=== PATIENT | male | born 1955 | race Caucasian/White ===

== ENCOUNTER 2017-03-11 17:44 | Emergency (ER) | payer OTHER ==
[~2017-03-11] VITALS: Ht 172.7 cm; Wt 80.0 kg
[2017-03-11 17:46] VITALS: BP 163/90; PULSE 116; RESP 16; TEMP 97.9; O2SAT 96
--- NOTE | 2017-03-11 17:55 | PD ---
HPI Chief Complaint: Dizziness Time Seen by Provider: 17:55 Travel History International Travel<30 days: No Contact w/Intl Traveler<30days: No Traveled to known affect area: No Allergies-Medications (Allergen,Severity, Reaction): Coded Allergies: No Known Allergies (Verified Adverse Reaction, Unknown, 04/26/05) Data Data Last Documented VS Vital Signs Date Time Temp Pulse Resp B/P Pulse Ox O2 Delivery O2 Flow Rate FiO2 03/11/17 17:46 97.9 116 16 163/90 96 Dominique Galvan Mar 11, 2017 17:55
[2017-03-11] MEDS ORDERED: SODIUM CHLOR 0.9% 1000 ML INJ 1,000 ML IV SCH (18:00)
--- NOTE | 2017-03-11 18:08 | PD ---
HPI Chief Complaint: Dizziness Time Seen by Provider: 17:53 Travel History International Travel<30 days: No Contact w/Intl Traveler<30days: No Traveled to known affect area: No History of Present Illness HPI 62-year-old male complains of dizziness, nausea vomiting. Patient states that he has intermittent dizziness for the past 3 months. Patient states that the dizziness is worse for the past 24 hours. Patient described the dizziness as things spinning around him. Patient states that the dizziness is worse with head movement. Patient states that he has intermittent nausea vomiting with the dizziness. Patient denies any headache. Patient denies any visual change. Patient denies any neck pain. Patient denies any chest pain or shortness of breath. Patient denies abdominal pain. Patient denies any focal weakness or numbness of extremity. Patient denies any fever chills. Patient denies any recent head injury. PFSH Social History Tobacco Use: No Allergies-Medications (Allergen,Severity, Reaction): Coded Allergies: No Known Allergies (Verified , 03/11/17) Reported Meds & Prescriptions Reported Meds & Active Scripts Active Zofran Odt (Ondansetron Odt) 4 Mg Tab 4 Mg SL Q6HR PRN Meclizine (Meclizine HCl) 25 Mg Tab 25 Mg PO TID PRN Augmentin (Amoxicillin-Clavulanate) 875-125 Mg Tab 1 Tab PO BID Reported Multi Adult Gummies (Multiple Vitamins W/ Minerals) 1 Chw Chw 1 Chew CHEW DAILY Advil Liqui-Gels (Ibuprofen) 200 Mg Capsule 800 Mg PO TID PRN Review of Systems General / Constitutional: No: Fever Eyes: No: Visual changes HENT: Positive: Lightheadedness, No: Headaches Cardiovascular: No: Chest Pain or Discomfort Respiratory: No: Shortness of Breath Gastrointestinal: Positive: Nausea, Vomiting, No: Abdominal Pain Genitourinary: No: Dysuria Musculoskeletal: No: Pain Skin: No Rash Neurologic: No: Weakness Psychiatric: No: Depression Endocrine: No: Polydipsia Hematologic/Lymphatic: No: Easy Bruising Physical Exam Narrative GENERAL: Well-nourished, well-developed patient. SKIN: Focused skin assessment warm/dry. HEAD: Normocephalic. EYES: No scleral icterus. No injection or drainage. Pupils 3 mm equal reactive. Patient has horizontal nystagmus. NECK: Supple, trachea midline. No JVD or lymphadenopathy. CARDIOVASCULAR: Regular rate and rhythm without murmurs, gallops, or rubs. RESPIRATORY: Breath sounds equal bilaterally. No accessory muscle use. GASTROINTESTINAL: Abdomen soft, non-tender, nondistended. MUSCULOSKELETAL: No cyanosis, or edema. BACK: Nontender without obvious deformity. No CVA tenderness. Neurologic exam: Patient's awake and alert oriented 3. No obvious focal neurological deficit. Deep tendon Reflexes +2 and equal. Negative Babinski. Data Data Last Documented VS Vital Signs Date Time Temp Pulse Resp B/P Pulse Ox O2 Delivery O2 Flow Rate FiO2 03/11/17 18:33 16 98 Room Air 03/11/17 17:46 97.9 116 163/90 Orders Electrocardiogram (03/11/17 18:00) Complete Blood Count With Diff (03/11/17 18:00) Comprehensive Metabolic Panel (03/11/17 18:00) Creatine Kinase (Cpk) (03/11/17 18:00) Troponin I (03/11/17 18:00) Prothrombin Time / Inr (Pt) (03/11/17 18:00) Act Partial Throm Time (Ptt) (03/11/17 18:00) Westergren Sedimentation Rate (03/11/17 18:00) Iv Access Insert/Monitor (03/11/17 18:00) Ecg Monitoring (03/11/17 18:00) Oximetry (03/11/17 18:00) Mri Brain W/O Contrast (03/11/17 18:00) Mra Brain W/O Contrast (Cow) (03/11/17 18:00) Mra Carotids W Contrast (03/11/17 18:00) Sodium Chlor 0.9% 1000 Ml Inj (Ns 1000 M (03/11/17 18:00) Ondansetron Inj (Zofran Inj) (03/11/17 18:15) Lorazepam Inj (Ativan Inj) (03/11/17 18:15) CKMB (03/11/17 18:25) CKMB% (03/11/17 18:25) Gadodiamide Pf Inj (Omniscan Pf Inj) (03/11/17 21:12) Amoxicil-Clavulanate (Augmentin) (03/11/17 21:45) Meclizine (Antivert) (03/11/17 21:45) Labs Laboratory Tests Test 03/11/17 18:25 White Blood Count 8.9 TH/MM3 Red Blood Count 5.53 MIL/MM3 Hemoglobin 18.0 GM/DL Hematocrit 53.0 % Mean Corpuscular Volume 95.8 FL Mean Corpuscular Hemoglobin 32.6 PG Mean Corpuscular Hemoglobin 34.0 % Concent Red Cell Distribution Width 13.0 % Platelet Count 220 TH/MM3 Mean Platelet Volume 8.6 FL Neutrophils (%) (Auto) 70.2 % Lymphocytes (%) (Auto) 24.2 % Monocytes (%) (Auto) 4.7 % Eosinophils (%) (Auto) 0.6 % Basophils (%) (Auto) 0.3 % Neutrophils # (Auto) 6.2 TH/MM3 Lymphocytes # (Auto) 2.2 TH/MM3 Monocytes # (Auto) 0.4 TH/MM3 Eosinophils # (Auto) 0.1 TH/MM3 Basophils # (Auto) 0.0 TH/MM3 CBC Comment DIFF FINAL Differential Comment Erythrocyte Sedimentation Rate 1 mm/hr Prothrombin Time 10.7 SEC Prothromb Time International 1.0 RATIO Ratio Activated Partial 26.6 SEC Thromboplast Time Sodium Level 137 MEQ/L Potassium Level 3.8 MEQ/L Chloride Level 99 MEQ/L Carbon Dioxide Level 28.0 MEQ/L Anion Gap 10 MEQ/L Blood Urea Nitrogen 22 MG/DL Creatinine 0.87 MG/DL Estimat Glomerular Filtration 89 ML/MIN Rate Random Glucose 107 MG/DL Calcium Level 9.2 MG/DL Total Bilirubin 0.6 MG/DL Aspartate Amino Transf 31 U/L (AST/SGOT) Alanine Aminotransferase 50 U/L (ALT/SGPT) Alkaline Phosphatase 55 U/L Total Creatine Kinase 444 U/L Creatine Kinase MB 2.3 NG/ML Creatine Kinase MB % 0.5 % Troponin I 0.03 NG/ML Total Protein 7.9 GM/DL Albumin 3.9 GM/DL MDM Medical Decision Making Medical Screen Exam Complete: Yes Emergency Medical Condition: Yes Interpretation(s) Last Impressions Neck Magnetic Resonance Angiography 03/11/17 1800 Signed Impressions: Service Date/Time: Saturday, March 11, 2017 20:17 - CONCLUSION: Plaque in the proximal right internal carotid artery resulting in mild stenosis. No evidence of hemodynamically significant carotid stenosis. Aashish Ospina MD Head Magnetic Resonance Angiography 03/11/17 1800 Signed Impressions: Service Date/Time: Saturday, March 11, 2017 20:17 - CONCLUSION: Brain MRA within normal limits. Aashish Ospina MD Brain MRI 03/11/17 1800 Signed Impressions: Service Date/Time: Saturday, March 11, 2017 20:17 - CONCLUSION: 1. Scattered white matter hyperintensities likely represent chronic small vessel ischemic change. 2. Air-fluid levels in the maxillary sinuses suggesting acute sinusitis. 3. No acute intracranial findings. Aashish Ospina MD 9:39 PM. CBC within normal limit. CMP within normal limit. BUN 22. Total CK 444. Normal MB fraction. Differential Diagnosis Differential diagnosis including acute vertigo, electrolyte imbalance, dehydration, TIA, CVA. Narrative Course 62-year-old male with dizziness and nausea vomiting. Diagnosis Primary Impression: Acute onset of severe vertigo Additional Impression: Sinusitis Qualified Code: J01.00 - Acute maxillary sinusitis, recurrence not specified Patient Instructions: General Instructions Additional Instructions: Meclizine as needed. Zofran as needed. Follow-up with ENT and neurologist. Return if persistent problem or worse. Med/Other Pt SpecificInfo: Prescription(s) given Scripts Ondansetron Odt (Zofran Odt)4 Mg Tab4 Mg SL Q6HR PRN (Nausea/Vomiting) #10 TAB Prov:Ryan Archer MD 03/11/17 Meclizine 25 Mg Tab25 Mg PO TID PRN (VERTIGO) #30 TAB Prov:Ryan Archer MD 03/11/17 Amoxicillin-Clavulanate (Augmentin)875-125 Mg Tab1 Tab PO BID #20 TAB Prov:Ryan Archer MD 03/11/17 Disposition: 01 DISCHARGE HOME Condition: Stable Ryan Archer MD Mar 11, 2017 18:08
[2017-03-11] MEDS ORDERED: LORazepam 2 MG/ML VIAL IV PUSH ONE (18:15)
[2017-03-11] MEDS ORDERED: ONDANSETRON HCL 4 MG/2 ML VIAL IV PUSH ONE (18:15)
[2017-03-11 18:31] VITALS: RESP 16; O2SAT 98
[2017-03-11 19:02] LABS: AUTOMATED NEUTROPHIL # 6.2 TH/MM3 (1.8-7.7); BASOPHIL % 0.3 % (0.0-2.0); EOSINOPHIL # 0.1 TH/MM3 (0-0.4); EOSINOPHIL % 0.6 % (0.0-4.0); HEMO FLAGS DIFF FINAL; LYMPH % 24.2 % (9.0-44.0); LYMPHOCYTE # 2.2 TH/MM3 (1.0-4.8); MEAN CELL VOLUME 95.8 FL (80.0-100.0); MEAN CORPUSCULAR HEMOGLOBIN 32.6 PG (27.0-34.0); MONO % 4.7 % (0.0-8.0); NEUT % 70.2 % (16.0-70.0); PLATELET COUNT 220 TH/MM3 (150-450); RED BLOOD COUNT 5.53 MIL/MM3 (4.50-5.90); WHITE BLOOD COUNT 8.9 TH/MM3 (4.0-11.0)
[2017-03-11] MEDS ORDERED: PEDI1TAB7 CHEW (19:11)
[2017-03-11] MEDS ORDERED: IBUP200C17 PO (19:11)
[2017-03-11 19:12] LABS: APTT (PATIENT) 26.6 SEC (24.3-30.1); PROTHROMBIN TIME - PATIENT 10.7 SEC (9.8-11.6)
[2017-03-11] MEDS ORDERED: MULT1CHW33 CHEW (19:12)
[2017-03-11 19:28] LABS: ANION GAP 10 MEQ/L (5-15); BLOOD UREA NITROGEN 22 MG/DL (7-18); CHLORIDE 99 MEQ/L (98-107); GLOMERULAR FILTRATION RATE 89 ML/MIN (>89); POTASSIUM 3.8 MEQ/L (3.5-5.1); SODIUM (NA) 137 MEQ/L (136-145)
[2017-03-11 19:29] LABS: ALT (GPT) 50 U/L (12-78)
[2017-03-11 19:33] LABS: ALKALINE PHOSPHATASE 55 U/L (45-117); AST (GOT) 31 U/L (15-37); CREATINE KINASE 444 U/L (39-308); TOTAL BILIRUBIN ADULT 0.6 MG/DL (0.2-1.0)
[2017-03-11 19:46] LABS: CKMB 2.3 NG/ML (0.5-3.6)
[2017-03-11] MEDS ORDERED: GADODIAMIDE PF 287 MG/ML 20 ML VIAL (for RAD MRI) IV ONE (21:12)
--- NOTE | 2017-03-11 21:21 | RADRPT ---
EXAM DATE/TIME: 03/11/2017 20:17 [facility] COMPARISON: No previous studies available for comparison. INDICATIONS : Vertigo. Nausea. MEDICAL HISTORY : None. SURGICAL HISTORY : Appendectomy. Facial surgery. ENCOUNTER: Initial ACUITY: 1 day PAIN SCORE: 0/10 LOCATION: cranial TECHNIQUE: Multiplanar, multisequence MRI of the brain was performed without contrast. FINDINGS: CEREBRUM: The ventricles are normal for age. No evidence of midline shift, mass lesion, hemorrhage or acute in farction. No extraaxial fluid collections are seen. The pituitary gland and suprasellar cistern are normal in configuration. WHITE MATTER: Scattered white matter hyperintensities likely represent chronic small vessel ischemic change. POSTERIOR FOSSA: The cerebellum and brainstem are intact. The 4th ventricle is midline. The cerebellopontine angle is unremarkable. The cerebellar tonsils are normal in position. DIFFUSION IMAGING: No focal areas of restricted diffusion are seen. No evidence of acute infarction. EXTRACRANIAL: Moderate severity bilateral maxillary sinus the coastal thickening and small air-fluid levels. CONCLUSION: 1. Scattered white matter hyperintensities likely represent chronic small vessel ischemic change. 2. Air-fluid levels in the maxillary sinuses suggesting acute sinusitis. 3. No acute intracranial findings. Aashish Ospina MD on March 11, 2017 at 21:16 Board Certified Radiologist. This report was verified electronically.
--- NOTE | 2017-03-11 21:23 | RADRPT ---
EXAM DATE/TIME: 03/11/2017 20:17 [facility] COMPARISON: No previous studies available for comparison. INDICATIONS : Vertigo. Nausea. MEDICAL HISTORY : None. SURGICAL HISTORY : Appendectomy. Facial surgery ENCOUNTER: Initial ACUITY: 1 day PAIN SCORE: 0/10 LOCATION: cranial Please note a normal MRA of the brain does not entirely exclude the possibility of a small aneurysm, nor the possibility of distal intracranial vessel disease. TECHNIQUE: 3D time of flight MRA was performed. Source images, multiplanar STS MIP, and 3D volume MIP reconstru ctions were reviewed. FINDINGS: There is excellent visualization of the major intracranial arteries out to the second-order branch ve ssels. There is no evidence for aneurysm, vessel truncation or stenosis, and no evidence for vascula r malformation. CONCLUSION: Brain MRA within normal limits. Aashish Ospina MD on March 11, 2017 at 21:19 Board Certified Radiologist. This report was verified electronically.
--- NOTE | 2017-03-11 21:27 | RADRPT ---
EXAM DATE/TIME: 03/11/2017 20:17 [facility] COMPARISON: No previous studies available for comparison. INDICATIONS : Vertigo. Nausea. CONTRAST: 20 cc Omniscan (gadodiamide) IV MEDICAL HISTORY : None. SURGICAL HISTORY : Appendectomy. Facial surgery. ENCOUNTER: Initial ACUITY: 1 day PAIN SCORE: 0/10 LOCATION: Percent stenosis is calculated using the diameter of the stenotic region over the diameter of the nor mal distal internal carotid artery. TECHNIQUE: Bolus infused MRA of the extracranial circulation was performed using a neurovascular coil. Post pro cessing was performed including rotating subvolume maximum intensity projections of each carotid channing ry, rotating full volume maximum intensity projections of both carotid arteries, sagittal and coronal sliding thin slab reformations of each carotid artery, and left oblique sliding thin slab reformatio n through the aortic arch to include the origin of the arch branch vessels. FINDINGS: AORTIC ARCH: There is a three vessel origin of the great vessels from the aorta. No evidence of ostial narrowing. RIGHT CAROTID: The common carotid artery is intact. Atherosclerotic plaque is identified at the proximal right inte rnal carotid artery/carotid bulb. This results in mild stenosis of less than 30%. The external caroti d artery is intact. LEFT CAROTID: The common carotid artery is intact. The carotid bulb has a normal configuration without ulceration or narrowing. The internal carotid artery lumen is smooth without stenosis. The external carotid ar larisa is intact. VERTEBRALS: The vertebral arteries have a symmetric diameter. No stenotic lesions are seen. CONCLUSION: Plaque in the proximal right internal carotid artery resulting in mild stenosis. No e vidence of hemodynamically significant carotid stenosis. Aashish Ospina MD on March 11, 2017 at 21:21 Board Certified Radiologist. This report was verified electronically.
[2017-03-11] MEDS ORDERED: AMOXICILLIN/CLAVULANATE K 875 MG TAB PO ONE (21:45)
[2017-03-11] MEDS ORDERED: MECLIZINE HCL 25 MG TAB PO ONE (21:45)
[2017-03-11] MEDS ORDERED: MECL-62 PO (21:47)
[2017-03-11] MEDS ORDERED: AUGM875T3 PO (21:47)
[2017-03-11] MEDS ORDERED: ZOFR4TAB3 SL (21:47)
--- NOTE | 2017-03-12 13:24 | EKG ---
Date Performed: 03/11/2017 Time Performed: 18:40:56 PTAGE: 62 years EKG: SINUS TACHYCARDIA ARM LEADS REVERSED ABNORMAL RHYTHM ECG PREVIOUS TRACING : 04/23/2005 09.15 Compared to prior tracing no significant change DOCTOR: Dmitry Adam Interpretating Date/Time 03/12/2017 13:24:26
== END 2017-03-11 23:07 | disposition home or self-care (01) ==
LOC: NEPD 17:44
DX: R42 Dizziness and giddiness (principal); J01.00 Acute maxillary sinusitis, unspecified; R94.31 Abnormal electrocardiogram [ECG] [EKG]; I65.21 Occlusion and stenosis of right carotid artery
CPT/HCPCS: 70544; 70548; 70551; 80053; 82550; 82552; 84484; 85025; 85610; 85652; 85730; 93005; 96361; 96374; 96375; 99285; A9579; J2060; J2405; J7030

== ENCOUNTER 2017-05-16 07:33 | Inpatient (IN) | payer OTHER ==
[2017-05-16] VITALS (16 sets, daily range): BP systolic 117–156; BP diastolic 71–89; PULSE 80–100; RESP 18–26; TEMP 98–98.9; O2SAT 92–95
[~2017-05-16 07:33] MED LIST: AUGM875T3 PO; IBUP200C17 PO; MECL-62 PO; MULT1CHW33 CHEW; ZOFR4TAB3 SL
[2017-05-16] MEDS ORDERED: HEPARIN SODIUM - IV 10,000 UNITS/10 ML VIAL ONE ×2 (07:36→07:44)
[2017-05-16] MEDS ORDERED: SODIUM CHLOR 0.9% 1000 ML INJ 1,000 ML IV ONE (07:36)
[2017-05-16] MEDS ORDERED: HEPARIN SODIUM - IV 10,000 UNITS/10 ML VIAL IV STA (07:36)
[2017-05-16] MEDS ORDERED: MORPHINE SULFATE 8 MG/ML INJ ONE (07:37)
[2017-05-16] MEDS ORDERED: NITROGLYCERIN INJ 5 ML ONE (07:44)
[2017-05-16] MEDS ORDERED: HEPARIN-NS/PF INJ 1,000 ML ONE (07:44)
[2017-05-16] MEDS ORDERED: SODIUM CHLORIDE 0.9% FLUSH 10 ML FLUSH IVF PRN (07:45)
[2017-05-16] MEDS ORDERED: MORPHINE SULFATE 4 MG/ML INJ IV PUSH ONE (07:45)
[2017-05-16] MEDS ORDERED: MIDAZOLAM HCL 2 MG/2 ML VIAL ONE ×2 (07:47→08:08)
--- NOTE | 2017-05-16 07:53 | RADRPT ---
EXAM DATE/TIME: 05/16/2017 07:39 [facility] COMPARISON: No previous studies available for comparison. INDICATIONS : Stemi alert. Chest pain. MEDICAL HISTORY : None. SURGICAL HISTORY : Appendectomy. Facial surgery ENCOUNTER: Initial ACUITY: 1 day PAIN SCORE: 5/10 LOCATION: Bilateral chest FINDINGS: A single view of the chest demonstrates the lungs to be symmetrically aerated without evidence of mas s, infiltrate or effusion. The cardiomediastinal contours are unremarkable. Osseous structures are intact. CONCLUSION: 1. No acute cardiopulmonary disease. Dash Suazo MD on May 16, 2017 at 7:51 Board Certified Radiologist. This report was verified electronically.
[2017-05-16 07:59] LABS: AUTOMATED NEUTROPHIL # 4.2 TH/MM3 (1.8-7.7); BASOPHIL % 0.5 % (0.0-2.0); EOSINOPHIL # 0.2 TH/MM3 (0-0.4); EOSINOPHIL % 2.1 % (0.0-4.0); HEMATOCRIT 47.2 % (39.0-51.0); HEMO FLAGS DIFF FINAL; LYMPH % 35.4 % (9.0-44.0); LYMPHOCYTE # 2.7 TH/MM3 (1.0-4.8); MEAN CELL VOLUME 96.1 FL (80.0-100.0); MEAN CORPUSCULAR HEMOGLOBIN 32.9 PG (27.0-34.0); MEAN CORPUSCULAR HGB CONC 34.2 % (32.0-36.0); MONO % 6.7 % (0.0-8.0); NEUT % 55.3 % (16.0-70.0); PLATELET COUNT 231 TH/MM3 (150-450); RED BLOOD COUNT 4.91 MIL/MM3 (4.50-5.90); RED CELL DISTRIBUTION WIDTH 13.3 % (11.6-17.2); WHITE BLOOD COUNT 7.5 TH/MM3 (4.0-11.0)
[2017-05-16] MEDS ORDERED: BIVALIRUDIN 250 MG VIAL ONE (08:00)
[2017-05-16] MEDS ORDERED: STERILE WATER FOR INJECTION 10 ML VIAL ONE (08:00)
[2017-05-16 08:04] LABS: I-STAT POTASSIUM 3.7 MMOL/L (3.5-4.9); I-STAT SODIUM 140 MMOL/L (138-146)
[2017-05-16 08:14] LABS: MAGNESIUM 2.5 MG/DL (1.5-2.5)
[2017-05-16 08:15] LABS: APTT (PATIENT) 24.3 SEC (24.3-30.1); PROTHROMBIN TIME - PATIENT 10.9 SEC (9.8-11.6)
[2017-05-16 08:16] LABS: CREATINE KINASE 261 U/L (39-308)
[2017-05-16 08:28] LABS: CKMB 4.5 NG/ML (0.5-3.6)
[2017-05-16] MEDS ORDERED: CLOPIDOGREL 300 MG TAB ONE (08:45)
[2017-05-16] MEDS ORDERED: SODIUM CHLOR 0.9% 1000 ML INJ 1,000 ML IV SCH (08:51)
[2017-05-16] MEDS ORDERED: BIVALIRUDIN INJ 250 MG in SODIUM CHLORIDE 0.9% INJ 50 ML IV SCH (08:51)
[2017-05-16] MEDS ORDERED: oxyCODONE/ACETAMINOPHEN 10 MG/325 MG TAB PO PRN (09:00)
[2017-05-16] MEDS ORDERED: oxyCODONE/ACETAMINOPHEN 5 MG/325 MG TAB PO PRN (09:00)
[2017-05-16] MEDS ORDERED: BACITRACIN OINT 0.9 GM PKT TOP ONE (09:00)
[2017-05-16] MEDS ORDERED: MORPHINE SULFATE 4 MG/ML INJ IV PUSH PRN (09:00)
[2017-05-16] MEDS ORDERED: ACETAMINOPHEN 325 MG TAB PO PRN (09:00)
[2017-05-16] MEDS ORDERED: TEMAZEPAM 15 MG CAP PO PRN (09:00)
[2017-05-16] MEDS ORDERED: LIDOCAINE 2% JELLY 30 ML TUBE TOP PRN (09:00)
[2017-05-16] MEDS ORDERED: CLOPIDOGREL 300 MG TAB PO ONE (09:00)
[2017-05-16] MEDS ORDERED: ONDANSETRON HCL 4 MG/2 ML VIAL IVP PRN (09:00)
[2017-05-16] MEDS ORDERED: MISC INFORMATION XX ONE (09:00)
--- NOTE | 2017-05-16 09:01 | PD ---
HPI Chief Complaint: STEMI Alert Time Seen by Provider: 07:36 Travel History International Travel<30 days: No Contact w/Intl Traveler<30days: No Traveled to known affect area: No History of Present Illness HPI 62-year-old male was brought in emergently as a STEMI alert. Patient is otherwise a healthy person was running when he started getting chest pain. This was 30 minutes prior to arrival. When EMS arrived and did a 12-lead EKG inferior STEMI was observed. Patient was given 2 baby aspirin and 3 sublingual nitroglycerin [id number]. Patient has a flange turner Dr. Soriano who did a stress test 2 years ago which was negative. No significant past medical history. Patient is not a smoker. Patient appears to be in significant distress. Complains of left-sided chest heaviness. A STEMI alert was called from ER. I discussed the case with patient's flange turner Dr. Soriano who asked me to call Dr. Bennett since he was out of town. Dr. Bennett would be coming in to perform the catheter. Patient has been notified about this. [facility] Past Medical History Narrative Medical List of his past medical, surgical, social and family history is reviewed from the nursing note. Social History Tobacco Use: No Allergies-Medications (Allergen,Severity, Reaction): Coded Allergies: No Known Allergies (Verified , 03/11/17) Comments List of his allergies reviewed from the nursing note. Reported Meds & Prescriptions Reported Meds & Active Scripts Active Reported Multi Adult Gummies (Multiple Vitamins W/ Minerals) 1 Chw Chw 1 Chew CHEW DAILY Narrative Medication List of his home medications reviewed from the nursing note. Review of Systems Except as stated in HPI: all other systems reviewed are Neg Physical Exam Narrative GENERAL: Awake, alert, significant distress SKIN: Cool, pale and diaphoretic HEAD: Atraumatic. Normocephalic. EYES: Pupils equal and round. No scleral icterus. No injection or drainage. ENT: No nasal bleeding or discharge. Mucous membranes pink and moist. NECK: Trachea midline. No JVD. CARDIOVASCULAR: Regular rate and rhythm. No murmur appreciated. RESPIRATORY: No accessory muscle use. Clear to auscultation. Breath sounds equal bilaterally. GASTROINTESTINAL: Abdomen soft, non-tender, nondistended. Hepatic and splenic margins not palpable. MUSCULOSKELETAL: No obvious deformities. No clubbing. No cyanosis. No edema. NEUROLOGICAL: Awake and alert. No obvious cranial nerve deficits. Motor grossly within normal limits. Normal speech. PSYCHIATRIC: Appropriate mood and affect; insight and judgment normal. Data Data Last Documented VS Vital Signs Date Time Temp Pulse Resp B/P (MAP) Pulse Ox O2 Delivery O2 Flow Rate FiO2 05/16/17 08:39 90 26 117/71 (86) 05/16/17 07:47 94 Nasal Cannula 4.00 Orders Orders Heparin Inj (Heparin Inj) (05/16/17 07:36) Morphine Inj (Morphine Inj) (05/16/17 07:37) Troponin I (05/16/17 07:36) Ckmb (Isoenzyme) Profile (05/16/17 07:36) Complete Blood Count With Diff (05/16/17 07:36) I-Stat Profile (05/16/17 07:36) I-Stat Creatinine (05/16/17 07:36) Calcium (05/16/17 07:36) Magnesium (Mg) (05/16/17 07:36) Prothrombin Time / Inr (Pt) (05/16/17 07:36) Act Partial Throm Time (Ptt) (05/16/17 07:36) B-Type Natriuretic Peptide (05/16/17 07:36) Chest, Single Ap (05/16/17 07:36) Electrocardiogram (05/16/17 07:36) Oxygen Administration (05/16/17 07:36) Iv Access Insert/Monitor (05/16/17 07:36) Oximetry (05/16/17 07:36) Sodium Chlor 0.9% 1000 Ml Inj (Ns 1000 M (05/16/17 07:36) Sodium Chloride 0.9% Flush (Ns Flush) (05/16/17 07:45) Heparin Inj (Heparin Inj) (05/16/17 07:36) Morphine Inj (Morphine Inj) (05/16/17 07:45) Cardiac Catheterization (05/16/17 ) Heparin-Ns/Pf Inj (Heparin-Ns/Pf Inj) (05/16/17 07:44) Nitroglycerin Inj (Nitroglycerin Inj) (05/16/17 07:44) Heparin Inj (Heparin Inj) (05/16/17 07:44) Midazolam Inj (Versed Inj) (05/16/17 07:47) Fentanyl Inj (Fentanyl Inj) (05/16/17 07:48) Bivalirudin Inj (Angiomax Inj) (05/16/17 08:00) Water Sterile For Injection (Sterile Nehemias (05/16/17 08:00) Midazolam Inj (Versed Inj) (05/16/17 08:08) CKMB (05/16/17 07:45) CKMB% (05/16/17 07:45) Clopidogrel (Plavix) (05/16/17 08:45) Activity Bed Rest (05/16/17 08:51) Activity Oob Ad Jenelle (05/16/17 08:51) Instruction (05/16/17 08:51) Diet Heart Healthy (05/16/17 Breakfast) Electrocardiogram (05/16/17 ) Notify Dr: Other (05/16/17 08:51) Complete Blood Count With Diff (05/17/17 04:00) Creatine Kinase (Cpk) (05/17/17 04:00) Basic Metabolic Panel (Bmp) (05/17/17 04:00) Lipid Profile (05/17/17 04:00) Cardiac Rehab Consult (05/16/17 ) Vital Signs (Adult) Q1H (05/16/17 08:51) Vital Signs (Adult) Q15MX4,Q30MX4,Q1HX4 (05/16/17 08:51) Sodium Chlor 0.9% 1000 Ml Inj (Ns 1000 M (05/16/17 08:51) Acetaminophen (Tylenol) (05/16/17 09:00) Oxycodone-Acetamin 5-325 Mg (Percocet (05/16/17 09:00) Oxycodone-Acetamin 10-325 Mg (Percocet 1 (05/16/17 09:00) Morphine Inj (Morphine Inj) (05/16/17 09:00) Temazepam (Restoril) (05/16/17 09:00) Ondansetron Inj (Zofran Inj) (05/16/17 09:00) Aspirin Chew (Aspirin Chew) (05/16/17 09:00) Clopidogrel (Plavix) (05/16/17 09:00) Clopidogrel (Plavix) (05/17/17 09:00) Bacitracin Oint Packet (Bacitracin Oint (05/16/17 09:00) Lidocaine 2% Jelly (Xylocaine 2% Jelly) (05/16/17 09:00) Misc Information (05/16/17 09:00) Sodium Chloride 0.9... W/Bivalirudin Inj (05/16/17 08:51) Vte Prophylaxis Not Indicated (05/16/17 08:51) Admit Order (Ed Use Only) (05/16/17 08:55) Activity Bed Rest (05/16/17 08:54) Activity Oob Ad Jenelle (05/16/17 08:54) ^ Follow Standard Of Care (05/16/17 ) Vital Signs (Adult) WANDA.Q1H (05/16/17 08:54) Vital Signs (Adult) Q15MX4,Q30MX4,Q1HX4 (05/16/17 08:54) Notify Dr: Other (05/16/17 ) Act Value . ORDERED (05/16/17 08:54) ^ Remove Sheath (05/16/17 ) General Assistant / Telemetry [email or web address] (05/16/17 08:54) Metoprolol Tartrate (Lopressor) (05/16/17 09:00) Atorvastatin (Lipitor) (05/16/17 21:00) Labs Laboratory Tests Test 05/16/17 07:45 White Blood Count 7.5 TH/MM3 Red Blood Count 4.91 MIL/MM3 Hemoglobin 16.2 GM/DL Bedside Hemoglobin 16.3 G/DL Hematocrit 47.2 % Bedside Hematocrit 48.0 % Mean Corpuscular Volume 96.1 FL Mean Corpuscular Hemoglobin 32.9 PG Mean Corpuscular Hemoglobin Concent 34.2 % Red Cell Distribution Width 13.3 % Platelet Count 231 TH/MM3 Mean Platelet Volume 8.7 FL Neutrophils (%) (Auto) 55.3 % Lymphocytes (%) (Auto) 35.4 % Monocytes (%) (Auto) 6.7 % Eosinophils (%) (Auto) 2.1 % Basophils (%) (Auto) 0.5 % Neutrophils # (Auto) 4.2 TH/MM3 Lymphocytes # (Auto) 2.7 TH/MM3 Monocytes # (Auto) 0.5 TH/MM3 Eosinophils # (Auto) 0.2 TH/MM3 Basophils # (Auto) 0.0 TH/MM3 CBC Comment DIFF FINAL Differential Comment Prothrombin Time 10.9 SEC Prothromb Time International Ratio 1.0 RATIO Activated Partial Thromboplast Time 24.3 SEC Bedside Sodium 140 MMOL/L Bedside Potassium 3.7 MMOL/L Bedside Chloride 102 MMOL/L Bedside Blood Urea Nitrogen 37 MG/DL Bedside Creatinine 1.5 MG/DL Bedside Glucose 200 MG/DL Calcium Level 8.8 MG/DL Magnesium Level 2.5 MG/DL Total Creatine Kinase 261 U/L Creatine Kinase MB 4.5 NG/ML Troponin I 0.02 NG/ML B-Type Natriuretic Peptide 4 PG/ML MDM Medical Decision Making Medical Screen Exam Complete: Yes Emergency Medical Condition: Yes Medical Record Reviewed: Yes Interpretation(s) Normal sinus rhythm, normal axis, inferior ST elevations with reciprocal changes. Heart rate of 75 bpm. Differential Diagnosis STEMI Narrative Course 8:45 AM I was in the Lab waiting for Dr. Bennett to arrived. Patient was given 5000 units of heparin bolus in the ER and 4 mg of IV morphine. Patient continued to being chest pain and 4 more milligrams were repeated as per my orders. Once the flange turner arrived I left the catheter lab. I was with the patient for 45 minutes from the time we left the ER. Besides patient being in significant distress from pain he remained hemodynamically stable. At one point his blood pressure had gone down to 65/45 as per the nurse. Patient was given IV fluid bolus. When I left blood pressure was 121/100. He was getting ready to get cardiac catheterization. Critical Care Narrative Aggregate critical care time was 45 minutes. Time to perform other separately billable procedures was not included in the critical care time. My time did not include minutes spent treating any other patients simultaneously or on activities that did not directly contribute to the patient's treatment. The services I provided to this patient were to treat and/or prevent clinically significant deterioration that could result in: STEMI, assisted catheter lab I provided critical care services requiring my management, as noted below: Chart data review, documentation time, medication orders and management, vital sign assessments/reviewing monitor data, ordering and reviewing lab tests, ordering and interpreting/reviewing x-rays and diagnostic studies, care of the patient and discussion of the patient with the admitting physicians. Procedures EKG Prior to Arrival: Yes Physician Communication Physician Communication Dr. Bennett, Dr. Soriano Diagnosis Primary Impression: STEMI (ST elevation myocardial infarction) Qualified Codes: I21.19 - ST elevation (STEMI) myocardial infarction involving other coronary artery of inferior wall Admitting Information Admitting Physician Requests: Admit Scripts Nitroglycerin SL (Nitroglycerin SL) 0.4 Mg Subl 0.4 MG SL DIRECTED Y for CHEST PAIN, #100 TAB.SL 0 Refills ONE TABLET UNDER THE TONGUE NEEDED FOR CHEST PAIN, MAY REPEAT EVERY FIVE MINUTES FOR A TOTAL OF 3 DOSES OR CALL 911 IF NO RELIEF Prov: Abel Cheema MD 05/17/17 Atorvastatin (Atorvastatin) 40 Mg Tab 40 MG PO HS for cad, #30 TAB 6 Refills Prov: Abel Cheema MD 05/17/17 Metoprolol Tartrate (Metoprolol Tartrate) 25 Mg Tab 12.5 MG PO BID for cad, #60 TAB 6 Refills Prov: Abel Cheema MD 05/17/17 Aspirin (Aspirin Low Strength) 81 Mg Chew 81 MG PO DAILY for cad, #180 EA 10 Refills Prov: Abel Cheema MD 05/17/17 Prasugrel (Effient) 10 Mg Tab 10 MG PO DAILY for cad, #30 TAB 6 Refills Prov: Abel Cheema MD 05/17/17 Geoff Lazaro MD May 16, 2017 09:01
--- NOTE | 2017-05-16 09:08 | CATHPROC ---
[employer] [facility] HIS Report Study Information Study Number Admission Scheduled Start Study Start [id number] May 16 2017 7:33AM 05/16/2017 May 16 2017 7:50AM [place] Service Cardiac Catheterization Admit Source Facility Department Emergency department [facility] - Comic Book Writer Physician and Clinical Staff Initial Segun Maciel Silk Soaker Angelito Polk,TALA Silk Soaker Leatha Valdovinos BSRN Other cathlab, cathlab Recorder Jeyson Jones RCIS(BS) Scrub Susan Decker RT(R) (BS) Procedures Performed Procedure Location (Site) Vessel Name Coronary Angiograms LCA Left Coronary Coronary Angiograms RCA Right Coronary Drug Eluting Inflatio RCA Prox Right Coronary L Heart Cath PTCA RCA Prox Right Coronary Wire insertion Radial (right) Radial Art. Equipment Time Rn Telephone Triage Description Size Mfg Part Number Used/Scraped COPILOT VALVE, BLEEDBACK [id number] 08:[address] CRITICAL CARE Used CONTROL *[id number] 08:21 JUÁREZ INFANTE PACING CATHETER J CURVE FR 5 Used *[id number] TRANSDUCER, TRUWAVE [id number] 07:58 JUÁREZ INFANTE * Used W/STOCKCOCK *[id number] *[id number] *[id number] 07:58 [employer] PACK, CCL CUSTOM * Used *[id number] 07:58 [employer] SUPPORT, ARTERIAL ADULT 71185 *[id number] Used [id number] 07:58 [employer] PACER PEN, SKIN DUAL W/ RULER * Used *[id number] BALLOON, 2.5 X 12MM SPRINTER [id number] 08:17 MEDTRONIC 12MM Used LEGEND *[id number] BALLOON, 3.25 X 20MM NC [id number] 08:37 MEDTRONIC 20MM Used EUPHORA *[id number] STENT, 3.0 12 RESOLUTE [id number] 08:34 MEDTRONIC 3.0 12 Used INTEGRITY RX *[id number] STENT, 3.0 22 RESOLUTE [id number] 08:28 MEDTRONIC 3.0 22 Used INTEGRITY RX *[id number] 07:58 [employer] 30 PAU INDEFLATOR Used *5253339 BAND, RADIAL COMPRESSION TR [id number] 08:43 [employer] 24CM Used SHORT 24 *[id number] SHEATH, FR6 RADIAL PRELUDE 07:58 [employer] FR 6 [id number] Used EASE 11CM [id number] 08:17 [employer] MEDICAL SHEATH, FR6.5 PRELUDE 11CM FR 6.5 [id number] Used *[id number] 07:58 [employer] MEDICAL WIRE, EXCHANGE 260CM 3MMJ 260CM Used *[id number] 07:58 NYCOMED OMNIPAQUE, 350 MG, 150ML 150ML [id number] Used CATHETER, FR4 SPIROFLEX [id number] 08:25 [employer] FR 4 Used ANGIOJET RX *[id number] 07:58 BERGMAN MEDICAL BLANKET,WARM AIR CCL * Used *[id number] WIRE, RUNTHROUGH NS FLOPPY 08:04 TER[employer] MEDICAL 180CM Used .014 180CM *[id number] Equipment Model, Serial, Lot Number and Expiration Data Description Model Number Serial Number Lot Number Expiration Date BALLOON, 2.5 X 12MM SPRINTER [id number] 11-04-2019 LEGEND SHEATH, FR6.5 PRELUDE 11CM [id number] 02-24-2020 STENT, 3.0 12 RESOLUTE [id number] 02-02-2019 INTEGRITY RX STENT, 3.0 22 RESOLUTE [id number] 12-03-2018 INTEGRITY RX History: Allergies Allergy Reaction No Known Allergies History: Risk Factors Family History of Hypertension Dyslipidemia Previous AR Previous Heart Failure Premature CAD No No No No No Prior Valve Prior PCI Prior CABG Surgery No No No Cerebrovascular Peripheral Artery Chronic Lung On Dialysis Diabetes Disease Disease Disease No No No No No History: Stress Tests Stress or Imaging Studies Performed No History: Other Disease Selection Items HTN History: Other Current Smoker No Labs Hgb (g/dl) Hct (%) 11.60-17.00 35.00-51.00 16.3 48 Glucose (mg/dl) BUN (mg/dl) Creatinine (mg/dl) BUN:Creatinine (1:x) 74.00-106.00 7.00-18.00 0.50-1.30 10.00-20.00 200 37 1.5 24.7 Na (meq/l) K (meq/l) Cl (meq/l) 136.00-145.00 3.50-5.10 98.00-107.00 140 3.7 102 CPK-MB (ng/ML) 0.50-3.60 Not Drawn Medication Medication Total Dose (Bolus/Oral) Medication Total Dosage/Unit 1% XYLOCAINE 23 mL ANGIOMAX BOLUS 13 mL FENTANYL 50 mcg NTG (IC) 400 mcg OXYGEN 6 l/min PLAVIX 600 mg VERSED 2 mg Medications (Bolus/Oral) Medication Time Given Dosage/Unit Administered By Reason OXYGEN 05/16/2017 7:50:20 AM 4 l/min Angelito Polk 4 l/min OXYGEN given in lab by Angelito Polk RN via Nasal. OXYGEN 05/16/2017 7:50:45 AM 2 l/min Patient arrived on 2 l/min OXYGEN via Nasal. VERSED 05/16/2017 8:07:40 AM 2 mg Rittenrubin, Leatha 2 mg VERSED given in lab by Leatha Valdovinos BSRN in Left Antecubital via Peripheral IV. Ordered by Segun Bennett. FENTANYL 05/16/2017 8:08:30 AM 50 mcg Leatha Valdovinos 50 mcg FENTANYL given in lab by Leatha Valdovinos BSRN in Left Antecubital via Peripheral IV. Ordered by Segun Bennett. 1% XYLOCAINE 05/16/2017 8:10:15 AM 3 mL Segun Bennett 3 mL 1% XYLOCAINE given in lab by Segun Bennett in Right Radial via Subcutaneous. NTG (IC) 05/16/2017 8:12:03 AM 200 mcg Segun Bennett 200 mcg NTG (IC) given in lab by Segun Bennett in Right Radial via Intra-arterial. ANGIOMAX BOLUS 05/16/2017 8:12:18 AM 13 mL Leatha Valdovinos 13 mL ANGIOMAX BOLUS given in lab by Leatha Valdovinos BSRN in Left Antecubital via Peripheral IV. Or dered by Segun Bennett. 1% XYLOCAINE 05/16/2017 8:20:18 AM 20 mL Segun Bennett 20 mL 1% XYLOCAINE given in lab by Segun Bennett in Right Groin via Subcutaneous. NTG (IC) 05/16/2017 8:31:15 AM 200 mcg Segun Bennett 200 mcg NTG (IC) given in lab by Segun Bennett via Intra-coronary. PLAVIX 05/16/2017 8:47:02 AM 600 mg Rittenrubin, Leatha 600 mg PLAVIX given in lab by Leatha Valdovinos BSRN via Oral. Medication (Drip) Medication Time Given Dosage/Unit Concentration/Unit Diluent (ml) Solution ANGIOMAX DRIP 05/16/2017 8:13:02 AM 1.75 mg/kg/hr 250 mg 50 NaCl .9 1.75 mg/kg/hr ANGIOMAX DRIP given in lab by Leatha Valdovinos BSRN in Left Antecubital via Peripheral IV. Pump/Drip Flow = 29.44 ml/hr using NaCl .9 with a concentration of 250 mg in 50 ml. Ordered by Segun Bennett. IV Solutions 05/16/2017 7:50:30 AM 0 mL (IV) 1000 NaCl .9 Patient arrived on IV Solutions in Left Antecubital via Peripheral IV. Pump/Drip Flow = 20 ml/hr usin g NaCl .9. IV Solutions 05/16/2017 7:52:34 AM 0 mL (IV) 500 NaCl .9 Patient arrived on IV Solutions in Left Antecubital via Peripheral IV. Pump/Drip Flow = 100 ml/hr usi ng NaCl .9. Ordered by Segun Bennett. Initial Case Assessment Cardiovascular HR Rhythm NIBP Chest Pain 83 stemi 121/79 8 Circulatory - Right Pulses Dorsalis Pedis Femoral Radial 2 1 2 Scale (0,1,2,3,4,d) Circulatory - Left Pulses Dorsalis Pedis Femoral Radial 2 1 Scale (0,1,2,3,4,d) Neurological State Oriented to time-place- Alert Moves all extremities person Respiration - General Respiration Rate (B/min) 16 Final Case Assessment Cardiovascular HR Rhythm NIBP Chest Pain 77 nsr 121/70 0 Edema Present Skin color Skin None Normal Warm Dry Circulatory - Right Pulses Dorsalis Pedis Femoral Radial 2 1 2 Scale (0,1,2,3,4,d) Circulatory - Left Pulses Dorsalis Pedis Femoral Radial 2 1 Scale (0,1,2,3,4,d) Neurological State Oriented to time-place- Alert Moves all extremities person Respiration - General Respiration Rate SpO2 (%) (B/min) 16 98 Chronological Log Time Study Chronological Log 7:49:30 Patient arrived directly from ER. 7:50:14 Patient Name, D.O.B, / Armband Verified By R.N. 7:50:16 Consent signed by the physician and the patient and verified by the Comic Book Writer staff. 7:50:17 Pre-op and post- op instructions given; patient acknowledges understanding of instructions. 7:50:18 Verbal Stimulation=2 Physical Stimulation=2 Airway=2 Respiration=2 TOTAL=8. (0=absent, 1=andrew ited, 2=present) 7:50:20 4 l/min OXYGEN given in lab by Angelito Polk, TALA via Nasal. 7:50:21 Presedation assessment performed by Comic Book Writer RN. 7:50:22 Patient has been NPO for More than 6Hrs. 7:50:23 Skin Breakdown- 7:50:24 Disposable Defibrillator Pads Placed On Patient. 7:50:25 Kirt Prominences Protected 7:50:29 A # 18 IV was noted in the Antecubital (left). Grade = patent 7:50:30 Patient arrived on IV Solutions in Left Antecubital via Peripheral IV. Pump/Drip Flow = 20 m l/hr using NaCl .9. 7:50:45 Patient arrived on 2 l/min OXYGEN via Nasal. 7:52:33 A # 18 IV was noted in the Antecubital (right). Grade = 0 Patient arrived on IV Solutions in Left Antecubital via Peripheral IV. Pump/Drip Flow = 100 ml/h r using NaCl .9. Ordered 7:52:34 by Segun Bennett. Vitals capture started with the following parameters, Patient=Adult, Interval=5 min, Initial Pre lsiln=946 mmHg, 7:53:19 Deflation Rate=5 mmHg, Cuff placed on Left Leg 7:54:36 Reference ECG taken Assessment: Initial Case, HR=83 BPM, Rhythm=stemi, TNUL=857/79 mmhg, Chest Pain=8 Right Pulses: Damian Ped=2, Femoral=1, Radial=2 7:54:56 Left Pulses: Damian Ped=2, Femoral=1 Neurological: State=Alert, Ox3, ASH Respiration: Resp=16 B/min 7:55:20 HR=87 bpm, VVFS=376/79 mmhg, SpO2=74.0 %, Resp=16 B/min, Pain=8, Lizeth=10, Eubanks=2 7:56:02 MD responded 7:58:47 HR=83 bpm, LFBR=604/115 mmhg, SpO2=95 %, Resp=18 B/min, Pain=8, Lizeth=10, Eubanks=2 7:59:15 Right Radial and groin(s) prepped with 2% chlorhexidine, and with a 3 min. waiting time. 7:59:36 Contrast Scanned 8:00:01 Pressure channel 1 zeroed. 8:03:56 HR=83 bpm, AXMC=809/77 mmhg, SpO2=98.0 %, Resp=15 B/min, Pain=8, Lizeth=10, Eubanks=2 8:07:20 MD arrived. 8:07:23 Immediate Presedation assesment performed by physician. 8:07:40 2 mg VERSED given in lab by Leatha Valdovinos BSRN in Left Antecubital via Peripheral IV. Or dered by Segun Bennett. 50 mcg FENTANYL given in lab by Leatha Valdovinos BSRN in Left Antecubital via Peripheral IV. Or dered by Donald, 8:08:30 Segun. 8:08:53 HR=80 bpm, BXDS=706/80 mmhg, SpO2=98.0 %, Resp=15 B/min, Pain=8, Lizeth=10, Eubanks=2 Time Out. Correct patient, correct procedure,correct physician, ,power injector not loaded with contrast with surgical 8:09:22 team present. Time Out Concurred by , individual staff in procedure 8:10:07 Case Start 8:10:10 Verbal Stimulation=2 Physical Stimulation=2 Airway=2 Respiration=2 TOTAL=8. (0=absent, 1=andrew ited, 2=present) 8:10:15 3 mL 1% XYLOCAINE given in lab by Segun Bennett in Right Radial via Subcutaneous. 8:11:17 Access site was Right Radial Artery. A SHEATH, FR6 RADIAL PRELUDE EASE 11CM FR 6 was advanced into the Radial (right) using the Yamel olson 8:11:38 technique. 8:12:03 200 mcg NTG (IC) given in lab by Segun Bennett in Right Radial via Intra-arterial. 13 mL ANGIOMAX BOLUS given in lab by Leatha Valdovinos BSRN in Left Antecubital via Peripheral I V. Ordered by 8:12:18 Segun Bennett. A JL 3.5 INFINITI CATHETER FR 6 was advanced over a wire. OMNIPAQUE, 350 MG, 150ML 150ML was use d for 8:12:30 injections. 1.75 mg/kg/hr ANGIOMAX DRIP given in lab by Leatha Valdovinos BSRN in Left Antecubital via Perip heral IV. 8:13:02 Pump/Drip Flow = 29.44 ml/hr using NaCl .9 with a concentration of 250 mg in 50 ml. Ordered by Segun Tapia. 8:13:48 The LCA was injected and visualized at various angles. OMNIPAQUE, 350 MG, 150ML 150ML used. 8:13:56 HR=74 bpm, VMXH=317/72 mmhg, SpO2=92.0 %, Resp=20 B/min, Pain=8, Lizeth=10, Eubanks=2 After removing the current catheter a JR 5.0 GUIDE CATHETER FR 6 was advanced over a WIRE, EXCHA NGE 260CM 8:14:28 3MMJ 260CM. 8:15:37 The RCA was injected and visualized at various angles. OMNIPAQUE, 350 MG, 150ML 150ML used. Recorded Pressure: Ao, HR=77, Condition=Condition 1 8:15:41 (Aorta) Ao 99/66/82 8:16:19 A WIRE, RUNTHROUGH NS FLOPPY .014 180CM 180CM was inserted via Radial (right). 8:16:54 Interventional wire has crossed the lesion A BALLOON, 2.5 X 12MM SPRINTER LEGEND 12MM was inserted over WIRE, RUNTHROUGH NS FLOPPY .014 180 CM 8:17:33 180CM via the Radial (right). A BALLOON, 2.5 X 12MM SPRINTER LEGEND 12MM over a WIRE, RUNTHROUGH NS FLOPPY .014 180CM 180CM in the 8:17:52 RCA Prox was inflated using a 30 PAU INDEFLATOR at 10 pau for 15 sec. A BALLOON, 2.5 X 12MM SPRINTER LEGEND 12MM over a WIRE, RUNTHROUGH NS FLOPPY .014 180CM 180CM in the 8:18:16 RCA Prox was inflated using a 30 PAU INDEFLATOR at 10 pau for 5 sec. 8:18:57 HR=94 bpm, PXWK=419/54 mmhg, SpO2=94.0 %, Resp=15 B/min, Pain=8, Lizeth=10, Eubanks=2 8:19:15 Balloon Removed. 8:20:18 20 mL 1% XYLOCAINE given in lab by Segun Bennett in Right Groin via Subcutaneous. 8:20:58 Access site was Right Femoral Vein. 8:21:03 A SHEATH, FR6.5 PRELUDE 11CM FR 6.5 was advanced into the Fem Vein (right) using the Percuta neous technique. 8:22:09 A PACING CATHETER J CURVE FR 5 was inserted via Fem Vein (right) 8:23:52 HR=77 bpm, LVXN=405/77 mmhg, SpO2=96 %, Resp=15 B/min, Pain=8, Lizeth=10, Eubanks=2 8:25:31 Aspiration catheter inserted(4fr ANGIOJET SPIROFLEX) 8:25:43 Aspiration in progress (Angiojet) 8:26:58 Angiojet Catheter was removed 8:28:51 HR=74 bpm, TZJT=035/69 mmhg, Resp=15 B/min, Pain=8, Lizeth=10, Eubanks=2 A STENT, 3.0 22 RESOLUTE INTEGRITY RX 3.0 22 was advanced through a JR 5.0 GUIDE CATHETER FR 6 o hermila a WIRE, 8:28:53 RUNTHROUGH NS FLOPPY .014 180CM 180CM. A STENT, 3.0 22 RESOLUTE INTEGRITY RX 3.0 22 was deployed using a 30 PAU INDEFLATOR at 12 atmosp heres for 8:30:09 10 seconds in the RCA Prox. 8:30:42 Delivery device removed 8:31:15 200 mcg NTG (IC) given in lab by Segun Bennett via Intra-coronary. 8:33:56 HR=78 bpm, NAPW=764/59 mmhg, SpO2=96.0 %, Resp=15 B/min, Pain=4, Lizeth=10, Eubanks=2 A STENT, 3.0 12 RESOLUTE INTEGRITY RX 3.0 12 was advanced through a JR 5.0 GUIDE CATHETER FR 6 o hermila a WIRE, 8:35:02 RUNTHROUGH NS FLOPPY .014 180CM 180CM. A STENT, 3.0 12 RESOLUTE INTEGRITY RX 3.0 12 was deployed using a 30 PAU INDEFLATOR at 12 atmosp heres for 5 8:36:13 seconds in the RCA Prox. 8:36:43 Delivery device removed A BALLOON, 3.25 X 20MM NC EUPHORA 20MM was inserted over WIRE, RUNTHROUGH NS FLOPPY .014 180CM 8:37:25 180CM via the RCA Prox. 8:38:53 HR=77 bpm, FUEI=431/70 mmhg, SpO2=95 %, Resp=15 B/min, Pain=4, Lizeth=10, Eubanks=2 A BALLOON, 3.25 X 20MM NC EUPHORA 20MM over a WIRE, RUNTHROUGH NS FLOPPY .014 180CM 180CM in th e RCA 8:39:05 Prox was inflated using a 30 PAU INDEFLATOR at 12 pau for 15 sec. 8:39:58 Balloon Removed. 8:41:08 Wire removed 8:41:26 Catheter was removed 8:41:50 [place] Yareli Catheter Removed 8:41:55 Case End Assessment: Final Case, HR=77 BPM, Rhythm=nsr, ELKM=080/70 mmhg, Chest Pain=0, Edema=None, [place] r=Normal, Skin = Warm, Dry Right Pulses: Damian Ped=2, Femoral=1, Radial=2 8:42:04 Left Pulses: Damian Ped=2, Femoral=1 Neurological: State=Alert, Ox3, ASH Respiration: Resp=16 B/min, SpO2=98 % 8:42:26 Catheter(s) removed without difficulty 8:42:28 In the Fem Vein (right) the SHEATH, FR6.5 PRELUDE 11CM FR 6.[address] by Segun Bennett. Radial Compression Device Used. 14 mLs of air placed in BAND, RADIAL COMPRESSION TR SHORT 24 24 CM. Affected 8:42:40 hand 96 % O2 saturation. 8:42:49 No case complications noted. 8:42:50 Cine recording checked. 8:42:53 Bedside Report will be given. 8:42:54 Contrast Scanned 8:42:54 Verbal Stimulation=2 Physical Stimulation=2 Airway=2 Respiration=2 TOTAL=8. (0=absent, 1=li mited, 2=present) 8:43:06 A Left Heart Cath was performed. 8:43:57 HR=77 bpm, NACB=423/72 mmhg, SpO2=98.0 %, Resp=18 B/min, Pain=0, Lizeth=10, Eubanks=2 8:47:02 600 mg PLAVIX given in lab by Leatha Valdovinos BSRN via Oral. 8:48:56 HR=79 bpm, UVVU=177/76 mmhg, CqA1=486 %, Resp=17 B/min, Pain=0, Lizeth=10, Eubanks=2 8:53:57 HR=78 bpm, RMKB=064/83 mmhg, SpO2=97.0 %, Resp=19 B/min, Pain=0, Lizeth=10, Eubanks=2 8:59:00 HR=81 bpm, NZMG=823/82 mmhg, Resp=17 B/min, Pain=0, Lizeth=10, Eubanks=2 9:04:01 HR=82 bpm, FYYL=694/78 mmhg, SpO2=95.0 %, Resp=12 B/min, Pain=0, Lizeth=10, Eubanks=2 9:08:00 Patient moved to stretcher 9:08:02 Vitals capture stopped. End Study - Contrast Media Used In Study Contrast Total Opened (mL) Total Used (mL) Total Wasted (mL) Omnipaque 90 90 0 End Study - Maximum Contrast Load Max Contrast Load (mL) 280.3 End Study - Radiation Exposure Fluoro Time (minutes) 6.1 End Study - Patient Disposition Complications Transferred To Interventional Outcome No Telemetry Bed successful
--- NOTE | 2017-05-16 09:27 | HHI.HP ---
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 Presented by EMS with sudden onset substernal cp with sob/diaphoresis,n/v. His ekg showed inferior stemi and he was hypotensive with bradycardia. He received 3 ntg without much benefit. He was taken immediately to [facility] laboratory and found to have acutely occluded rca, 2 diagonal branches and lad with nonobstructive dz. temporary pm during the procedure. 2 isabel to rca. LVF nml on echo. After the procedure the pt denies any cp and is resting comfortably. Family present and the situation discussed. The pt is said to have a negative stress test 2 yrs ago. He exercises regularly and was actually at the gym this morning.. Review of Systems Other cp Past Family Social History Past Medical History no significant pmh/psh Reported Medications prn advil Allergies: Coded Allergies: No Known Allergies (Verified , 03/11/17) Family History no early cad Social History no etoh/tob Physical Exam Vital Signs heart reg lung cta abd s/nt ext no edema Vital Signs Date Time Temp Pulse Resp B/P (MAP) Pulse Ox O2 Delivery O2 Flow Rate FiO2 05/16/17 08:39 90 26 117/71 (86) 05/16/17 07:47 94 Nasal Cannula 4.00 05/16/17 07:33 90 Nasal Cannula 2.00 05/16/17 07:33 26 87 Room Air Laboratory Laboratory Tests Test 05/16/17 07:45 White Blood Count 7.5 Red Blood Count 4.91 Hemoglobin 16.2 Bedside Hemoglobin 16.3 Hematocrit 47.2 Bedside Hematocrit 48.0 Mean Corpuscular Volume 96.1 Mean Corpuscular Hemoglobin 32.9 Mean Corpuscular Hemoglobin Concent 34.2 Red Cell Distribution Width 13.3 Platelet Count 231 Mean Platelet Volume 8.7 Neutrophils (%) (Auto) 55.3 Lymphocytes (%) (Auto) 35.4 Monocytes (%) (Auto) 6.7 Eosinophils (%) (Auto) 2.1 Basophils (%) (Auto) 0.5 Neutrophils # (Auto) 4.2 Lymphocytes # (Auto) 2.7 Monocytes # (Auto) 0.5 Eosinophils # (Auto) 0.2 Basophils # (Auto) 0.0 CBC Comment DIFF FINAL Differential Comment Prothrombin Time 10.9 Prothromb Time International Ratio 1.0 Activated Partial Thromboplast Time 24.3 Bedside Sodium 140 Bedside Potassium 3.7 Bedside Chloride 102 Bedside Blood Urea Nitrogen 37 Bedside Creatinine 1.5 Bedside Glucose 200 Calcium Level 8.8 Magnesium Level 2.5 Total Creatine Kinase 261 Creatine Kinase MB 4.5 Troponin I 0.02 B-Type Natriuretic Peptide 4 Result Diagram: 05/16/17 0745 Caprini VTE Risk Assessment Caprini Risk Assessment Model Point Value = 1 Point Value = 2 Point Value = 3 Point Value = 5 Age 41-60 Minor surgery BMI > 25 kg/m2 Swollen legs Varicose veins or History of unexplained or recurrent spontaneous Oral contraceptives or hormone replacement Sepsis (< 1 month) Serious lung disease, including pneumonia (< 1 month) Abnormal pulmonary function Acute myocardial infarction Congestive heart failure (< 1 month) History of inflammatory bowel disease Medical patient at bed rest Age 61-74 Arthroscopic surgery Major open surgery (> 45 min) Laparoscopic surgery (> 45 min) Malignancy Confined to bed (> 72 hours) Immobilizing plaster cast Central venous access Age >= 75 History of VTE Family history of VTE Factor V Leiden Prothrombin [id number] Lupus anticoagulant Anticardiolipin antibodies Elevated serum homocysteine Heparin-induced thrombocytopenia Other congenital or acquired thrombophilia Stroke (< 1 month) Elective arthroplasty Hip, pelvis, or leg fracture Acute spinal cord injury (< 1 month) Prophylaxis Regimen Total Risk Factor Score Risk Level Prophylaxis Regimen 0-1 Low Early ambulation 2 Moderate Order ONE of the following: *Sequential Compression Device (SCD) *Heparin 5000 units SQ BID 3-4 Higher Order ONE of the following medications: *Heparin 5000 units SQ TID *Enoxaparin/Lovenox 40 mg SQ daily (WT < 150 kg, CrCl > 30 mL/min) *Enoxaparin/Lovenox 30 mg SQ daily (WT < 150 kg, CrCl > 10-29 mL/min) *Enoxaparin/Lovenox 30 mg SQ BID (WT < 150 kg, CrCl > 30 mL/min) AND/OR *Sequential Compression Device (SCD) 5 or more Highest Order ONE of the following medications: *Heparin 5000 units SQ TID (Preferred with Epidurals) *Enoxaparin/Lovenox 40 mg SQ daily (WT < 150 kg, CrCl > 30 mL/min) *Enoxaparin/Lovenox 30 mg SQ daily (WT < 150 kg, CrCl > 10-29 mL/min) *Enoxaparin/Lovenox 30 mg SQ BID (WT < 150 kg, CrCl > 30 mL/min) AND *Sequential Compression Device (SCD) Assessment and Plan Problem List: (1) STEMI (ST elevation myocardial infarction) ICD Codes: I21.3 - ST elevation (STEMI) myocardial infarction of unspecified site Status: Acute Plan: Pt presented with cp, bradycardia/hypotension and acute inferior stemi [facility] 05/16. acutely occluded rca, 2 diagonal branches and lad with nonobstructive dz. temporary pm during the procedure. 2 isabel to rca. LVF nml on echo. 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 In the case of services not specified as inpatient-only, they are appropriately provided as inpatient services in accordance with the 2-midnight benchmark. Estimated LOS (days): 3 3 days is the estimated time the patient will need to remain in the hospital, assuming treatment plan goals are met and no additional complications. Post-Hospital Plan: Home Problem Qualifiers (1) STEMI (ST elevation myocardial infarction): Qualified Codes: I21.19 - ST elevation (STEMI) myocardial infarction involving other coronary artery of inferior wall Abel Cheema MD May 16, 2017 09:27
--- NOTE | 2017-05-16 09:54 | MB ---
cc: CHEMA JACOBSON MD DATE OF CONSULTATION: 05/16/[address]-elevation [place]. HISTORY OF PRESENT ILLNESS A very nice 62-year-old gentleman who presented to the emergency department with acute onset of substernal chest pain. The patient was in his usual state of health up until this morning. He has no prior history of known heart disease. He follows with Dr. Soriano in the outpatient setting and had a stress test about 2 years ago. He developed acute onset of substernal chest pain this morning and associated shortness of breath, diaphoresis. He presented to the emergency department, 12-lead electrocardiogram showed inferior ST-elevation, myocardial infarction and STEMI protocol was initiated. The patient did develop a transient hypotension with systolic pressure in the 60 mmHg range after three sublingual nitroglycerin [id number]. He is very active with no recent exertional anginal symptoms. I was called for emergent cardiac catheterization. PAST MEDICAL HISTORY No significant medical issues. ALLERGIES NO KNOWN DRUG ALLERGIES. MEDICATIONS Multivitamin. SOCIAL HISTORY Denies alcohol, tobacco or drug use. FAMILY HISTORY Denies any family history of early coronary artery disease, sudden cardiac . REVIEW OF SYSTEMS A 12-point review of systems was performed and negative unless otherwise noted in the history of present illness. PHYSICAL EXAMINATION VITAL SIGNS: Blood pressure 90/60 mmHg, heart rate 60 beats per minute. GENERAL: He is alert but in moderate to severe distress. HEENT: Exam shows pupils are reactive to light and accommodation. Extraocular movements are intact. NECK: No elevation in jugular venous distension. No thyromegaly or lymphadenopathy. No carotid bruits. LUNGS: Clear to auscultation bilaterally. CARDIOVASCULAR: Regular rate and rhythm without murmurs, rubs or gallops. ABDOMEN: Nontender, nondistended. Good bowel sounds. No hepatosplenomegaly. EXTREMITIES: No clubbing, cyanosis or edema. Good peripheral pulses. Cranial nerves intact. Motor sensory grossly intact. LABORATORY DATA WBC 7.5, hemoglobin 16.2, platelet count 231, INR is 1, BUN is 37, creatinine 1.5, glucose 200, troponin 0.02. ELECTROCARDIOGRAM Shows sinus rhythm, inferior ST-elevation. ASSESSMENT 1. ST-elevation myocardial infarction. 2. Possible glucose intolerance. PLAN Given the patient's acute symptoms, electrocardiographic changes, he will be taken emergently to the cardiac catheterization lab for attempted revascularization. Risks, benefits and alternatives were discussed with the patient. He is agreeable to proceed. We will gently hydrate for his elevated BUN and creatinine. MD SHANTANU Lao/ROXANA /9:09 AM /9:41 AM
--- NOTE | 2017-05-16 10:00 | MA ---
cc: SEGUN JOHNSTON DATE: 05/16/[address]-elevation myocardial infarction. TRAILER MECHANIC Segun johnston MD, [facility] PROCEDURE PERFORMED 1. Fluoroscopy with interpretation. 2. Coronary angiography. 3. Temporary transvenous pacemaker placement. 4. Radiolytic thrombectomy of the right coronary artery. 5. Percutaneous intervention with drug-eluting stents to the mid right coronary artery. METHOD The risks, benefits and alternatives were discussed with the patient. The patient understood and consented to the procedure. The patient was brought into the catheterization lab and was placed on the catheterization table. The right wrist and right groin were prepped and draped in a sterile fashion. The right wrist was anesthetized with 2% lidocaine. The right radial artery is cannulated and a 6-Macedonian 7 cm sheath was placed without difficulty. 200 micrograms of intra-arterial nitroglycerin was administered with an Angiomax bolus followed by drip was initiated. HEMODYNAMICS Aortic hemodynamics measured at 99/66 mmHg. CORONARY ANGIOGRAPHY The left coronary circulation was selectively engaged with a 6-kenyan JL 3.5 catheter. The right coronary circulation was selectively engaged with a 6-kenyan JR5 guide catheter. 1. The left main coronary is angiographically normal. 2. The left anterior descending coronary is quite tortuous. There is a 30-40% tubular stenosis in the proximal segment just prior to the bifurcation of a smaller first diagonal branch. There are two diagonal branches and both have 50-60% stenosis in the proximal segment. The mid left anterior descending and distal left anterior descending is smaller caliber size and tortuous. There is a 50% stenosis in the midsegment. 3. The left circumflex gives rise to an obtuse marginal branch. There is 30% stenosis in the circumflex and obtuse marginal branch. 4. The right coronary is 100% occluded proximally with a heavy thrombotic burden. PERCUTANEOUS TEMPORARY TRANSVENOUS PACEMAKER PLACEMENT In anticipation of right coronary intervention and possible bradycardia, the right femoral vein was accessed. A 6-Macedonian 11 cm sheath was placed without difficulty. A 5-Macedonian balloon-tip temporary transvenous pacemaker was then advanced under fluoroscopic guidance to the right ventricular apex. Appropriate capture and pacing was confirmed. The backup rate was set at 50 beats per minute and was utilized during the case. PERCUTANEOUS INTERVENTION The right coronary artery was selectively engaged with a 6-Macedonian JR5 guide catheter. A 0.014 inch, 180 cm Terumo Runthrough wire was navigated down to the distal posterior descending artery. A 2.5 x 12 mm RX Euphora balloon was advanced down to the proximal right coronary artery and deployed. Repeat angiography showed severe residual stenosis but rastafarian of RODERICK-II flow. There was still a heavy thrombotic burden present. A 4-Macedonian Powerflex AngioJet catheter was then prepped. Radiolytic thrombectomy was performed in the right coronary on two sequential passes with utilization of the pacemaker. A 3.0 x 22 mm RX Resolut drug-eluting stent was advanced down to the proximal right coronary artery and deployed. There was still stepdown with stenosis present at the distal stent margin. A 3.0 x 12 mm RX Resolut drug-eluting stent was advanced down to the distal stent margin and deployed. The stents were then post dilated with 3.25 x 20 mm Euphora NC balloon to 16 atmospheres. Repeat angiography showed RODERICK-III flow, no residual stenosis. There was some mild spasm in the posterior descending and posterolateral branch. Nitroglycerin was administered with resolution. Angiomax was administered throughout the entire procedure to maintain appropriate anticoagulation. CONCLUSIONS 1. Acute thrombotic occlusion of the right coronary artery. 2. Successful radiolytic thrombectomy and drug-eluting stent placement in the right coronary artery. 3. Successful utilization of temporary transvenous pacemaker. PLAN The patient will be initiated on aggressive medical therapy which includes aspirin, Plavix, beta kirk and statin. Will remove his venous sheath in two hours. A right radial HemoBand was applied. Will watch for any post VT arrhythmias. In regards to his left anterior descending coronary and diagonal branch moderate disease, may be useful for outpatient stress test to determine if there is any ischemic burden. He was previously active without symptoms prior to his acute presentation. MD SHANTANU Lao/ASHUTOSH /9:00 AM /9:59 AM
[2017-05-16] MEDS ORDERED: LORazepam 1 MG TAB PO PRN (11:30)
[2017-05-16] MEDS ORDERED: LORazepam 2 MG/ML VIAL IV PRN (11:30)
--- NOTE | 2017-05-16 12:35 | EKG ---
Date Performed: 05/16/2017 Time Performed: 07:37:48 PTAGE: 62 years EKG: Sinus rhythm MARKED ST ELEVATION, CONSIDER INFERIOR INJURY ACUTE IA NO PREVIOUS TRACING DOCTOR: Dick Smart Interpretating Date/Time 05/16/2017 12:34:52
[2017-05-16] MEDS ORDERED: IOHEXOL 350 MG/ML 100 ML BTL (for Cath Lab) OTHER ONE (13:11)
--- NOTE | 2017-05-16 13:45 | EKG ---
Date Performed: 05/16/2017 Time Performed: 10:50:50 PTAGE: 62 years EKG: Sinus rhythm with 1st degree A-V block rSr'(V1) - probable normal variant Inferior T wave changes are nonspecific Abnormal ECG PREVIOUS TRACING : 03/11/2017 18.40 Compared to previous tracing, acute inferior infarction pat tern has resolved. DOCTOR: Dick Smart Interpretating Date/Time 05/16/2017 13:44:01
--- NOTE | 2017-05-16 17:59 | ECHRPT ---
Indication: CHEST PAIN CONCLUSIONS The left ventricular systolic function is normal with an estimated ejection fraction in the range of 55-60%. Normal left ventricular size. Wall thickness is measured at the upper limits of normal. No regional wall motion abnormalities are present. Trace mitral valve regurgitation. Aortic valve sclerosis is present. There is trace tricuspid valve regurgitation. The estimated pulmonary arterial pressure is 30 mmHg. Trivial pulmonary valve regurgitation. BP: 117 / 71 HR: 90 Rhythm: Sinus MEASUREMENTS (Male / Female) Normal Values Technical Quality:Good 2D ECHO LV Diastolic Diameter PLAX 4.5 cm 4.2 - 5.9 / 3.9 - 5.3 cm LV Systolic Diameter PLAX 3.1 cm IVS Diastolic Thickness 1.2 cm 0.6 - 1.0 / 0.6 - 0.9 cm LVPW Diastolic Thickness 1.2 cm 0.6 - 1.0 / 0.6 - 0.9 cm LV Relative Wall Thickness 0.5 RV Internal Dim ED PLAX 3.4 cm LVOT Diameter 2.1 cm LA Systolic Diameter LX 3.7 cm 3.0 - 4.0 / 2.7 - 3.8 cm LV Ejection Fraction MOD 4C 59.0 % LV Cardiac Index MOD 4C 2177.4 cm/minm LV Ejection Fraction 4C AL 59.8 % LV Cardiac Index 4C AL 2284.2 cm/minm M-MODE Aortic Root Diameter MM 3.3 cm AV Cusp Separation MM 2.2 cm DOPPLER AV Peak Velocity 129.0 cm/s AV Peak Gradient 6.7 mmHg LVOT Peak Velocity 104.0 cm/s LVOT Peak Gradient 4.3 mmHg AV Area Cont Eq pk 2.8 cm MV Area PHT 4.3 cm Mitral E Point Velocity 82.9 cm/s Mitral A Point Velocity 73.5 cm/s Mitral E to A Ratio 1.1 LV E' Lateral Velocity 9.2 cm/s Mitral E to LV E' Lateral Ratio 9.1 LV E' Septal Velocity 6.8 cm/s Mitral E to LV E' Septal Ratio 12.2 TR Peak Velocity 213.0 cm/s TR Peak Gradient 18.1 mmHg PV Peak Velocity 141.0 cm/s PV Peak Gradient 8.0 mmHg FINDINGS LEFT VENTRICLE The left ventricular systolic function is normal with an estimated ejection fraction in the range of 55-60%. Normal left ventricular size. Wall thickness is measured at the upper limits of normal. No regional wall motion abnormalities are present. RIGHT VENTRICLE Normal right ventricular size and systolic function. LEFT ATRIUM The left atrial size is normal. RIGHT ATRIUM The right atrial size is normal. ATRIAL SEPTUM Normal atrial septal thickness without atrial level shunting by limited color doppler interrogation. AORTA The aortic root and proximal ascending aorta are normal in size on limited imaging. MITRAL VALVE Trace mitral valve regurgitation. AORTIC VALVE Aortic valve sclerosis is present. TRICUSPID VALVE There is trace tricuspid valve regurgitation. The estimated pulmonary arterial pressure is 30 mmHg. PULMONARY VALVE Trivial pulmonary valve regurgitation. VESSELS The inferior vena cava is normal in size. PERICARDIUM No pericardial effusion. Segun Bennett MD, FACC (Electronically Signed) Final Date:16 May 2017 17:58
[2017-05-16] MEDS: METOPROLOL TARTRATE 25 MG TAB PO SCH (21:00)
[2017-05-16] MEDS ORDERED: ATORVASTATIN 40 MG TAB PO SCH (21:00)
[2017-05-17] VITALS (13 sets, daily range): BP systolic 124–140; BP diastolic 80–84; PULSE 72–91; RESP 17–18; TEMP 97.3–98.1; O2SAT 95–97
[2017-05-17 05:48] LABS: AUTOMATED NEUTROPHIL # 6.2 TH/MM3 (1.8-7.7); BASOPHIL % 0.3 % (0.0-2.0); EOSINOPHIL # 0.1 TH/MM3 (0-0.4); EOSINOPHIL % 1.6 % (0.0-4.0); HEMATOCRIT 42.3 % (39.0-51.0); HEMO FLAGS DIFF FINAL; LYMPH % 20.5 % (9.0-44.0); LYMPHOCYTE # 1.8 TH/MM3 (1.0-4.8); MEAN CELL VOLUME 96.8 FL (80.0-100.0); MEAN CORPUSCULAR HEMOGLOBIN 32.8 PG (27.0-34.0); MEAN CORPUSCULAR HGB CONC 33.8 % (32.0-36.0); MONO % 6.3 % (0.0-8.0); NEUT % 71.3 % (16.0-70.0); PLATELET COUNT 182 TH/MM3 (150-450); RED BLOOD COUNT 4.37 MIL/MM3 (4.50-5.90); RED CELL DISTRIBUTION WIDTH 13.2 % (11.6-17.2); WHITE BLOOD COUNT 8.7 TH/MM3 (4.0-11.0)
[2017-05-17 06:12] LABS: BICARBONATE 25.8 MEQ/L (21.0-32.0); HDL CHOLESTEROL 31.5 MG/DL (40.0-60.0); POTASSIUM 3.9 MEQ/L (3.5-5.1)
[2017-05-17 06:15] LABS: P2Y12 REACTION UNITS (PRU) 216 PRU (194-418)
[2017-05-17 06:43] LABS: CKMB 36.2 NG/ML (0.5-3.6)
[2017-05-17] MEDS ORDERED: PRASUGREL 10 MG TAB PO ONE (07:45)
--- NOTE | 2017-05-17 07:45 | PD.CARD.PN ---
Subjective Subjective Remarks doing well no complaints Objective Vital Signs / I&O Vital Signs Date Time Temp Pulse Resp B/P (MAP) Pulse Ox O2 Delivery O2 Flow Rate FiO2 05/17/17 07:00 73 05/17/17 03:33 98.1 79 18 136/83 (100) 96 05/17/17 00:32 98.1 83 18 140/84 (102) 96 05/16/17 23:00 80 05/16/17 21:02 98.0 83 18 156/88 (110) 95 05/16/17 19:00 92 05/16/17 18:00 100 05/16/17 17:00 80 05/16/17 16:00 80 05/16/17 15:00 80 05/16/17 15:00 98.1 81 18 136/89 (105) 92 05/16/17 14:00 88 05/16/17 13:00 86 05/16/17 12:00 84 05/16/17 11:01 82 05/16/17 11:00 98.9 86 20 117/76 (90) 93 05/16/17 10:00 82 05/16/17 08:39 90 26 117/71 (86) 05/16/17 07:47 94 Nasal Cannula 4.00 I/O 05/16/17 05/16/17 05/16/17 05/17/17 05/17/17 05/17/17 07:00 15:00 23:00 07:00 15:00 23:00 Intake Total 0.5 ml 1000 ml 1280 ml Output Total 600 ml Balance 0.5 ml 400 ml 1280 ml Intake Oral 200 ml 480 ml IV Total 0.5 ml 800 ml 800 ml Output Urine Total 600 ml # Voids 5 # Bowel Movements 1 Physical Exam GENERAL: SKIN: Warm and dry. HEAD: Normocephalic. EYES: No scleral icterus. No injection or drainage. NECK: Supple, trachea midline. No JVD or lymphadenopathy. CARDIOVASCULAR: Regular rate and rhythm without murmurs, gallops, or rubs. RESPIRATORY: Breath sounds equal bilaterally. No accessory muscle use. GASTROINTESTINAL: Abdomen soft, non-tender, nondistended. MUSCULOSKELETAL: No cyanosis, or edema. BACK: Nontender without obvious deformity. No CVA tenderness. Laboratory Laboratory Tests Test 05/16/17 07:45 05/17/17 05:20 White Blood Count 7.5 TH/MM3 8.7 TH/MM3 Red Blood Count 4.91 MIL/MM3 4.37 MIL/MM3 Hemoglobin 16.2 GM/DL 14.3 GM/DL Bedside Hemoglobin 16.3 G/DL Hematocrit 47.2 % 42.3 % Bedside Hematocrit 48.0 % Mean Corpuscular Volume 96.1 FL 96.8 FL Mean Corpuscular Hemoglobin 32.9 PG 32.8 PG Mean Corpuscular Hemoglobin Concent 34.2 % 33.8 % Red Cell Distribution Width 13.3 % 13.2 % Platelet Count 231 TH/MM3 182 TH/MM3 Mean Platelet Volume 8.7 FL 8.3 FL Neutrophils (%) (Auto) 55.3 % 71.3 % Lymphocytes (%) (Auto) 35.4 % 20.5 % Monocytes (%) (Auto) 6.7 % 6.3 % Eosinophils (%) (Auto) 2.1 % 1.6 % Basophils (%) (Auto) 0.5 % 0.3 % Neutrophils # (Auto) 4.2 TH/MM3 6.2 TH/MM3 Lymphocytes # (Auto) 2.7 TH/MM3 1.8 TH/MM3 Monocytes # (Auto) 0.5 TH/MM3 0.5 TH/MM3 Eosinophils # (Auto) 0.2 TH/MM3 0.1 TH/MM3 Basophils # (Auto) 0.0 TH/MM3 0.0 TH/MM3 CBC Comment DIFF FINAL DIFF FINAL Differential Comment Prothrombin Time 10.9 SEC Prothromb Time International Ratio 1.0 RATIO Activated Partial Thromboplast Time 24.3 SEC Bedside Sodium 140 MMOL/L Bedside Potassium 3.7 MMOL/L Bedside Chloride 102 MMOL/L Bedside Blood Urea Nitrogen 37 MG/DL Bedside Creatinine 1.5 MG/DL Bedside Glucose 200 MG/DL Calcium Level 8.8 MG/DL 8.0 MG/DL Magnesium Level 2.5 MG/DL Total Creatine Kinase 261 U/L 513 U/L Creatine Kinase MB 4.5 NG/ML 36.2 NG/ML Troponin I 0.02 NG/ML B-Type Natriuretic Peptide 4 PG/ML Platelet Function P2Y12 React Units 216 PRU Blood Urea Nitrogen 27 MG/DL Creatinine 0.79 MG/DL Random Glucose 93 MG/DL Sodium Level 140 MEQ/L Potassium Level 3.9 MEQ/L Chloride Level 107 MEQ/L Carbon Dioxide Level 25.8 MEQ/L Anion Gap 7 MEQ/L Estimat Glomerular Filtration Rate 99 ML/MIN Creatine Kinase MB % 7.1 % Triglycerides Level 214 MG/DL Cholesterol Level 204 MG/DL LDL Cholesterol 130 MG/DL HDL Cholesterol 31.5 MG/DL Cholesterol/HDL Ratio 6.47 RATIO Assessment and Plan Assessment and Plan STEMI - PCI PRISCILA x 2 RCA. moderate LAD/diagonal dz. probable outpatient stress test in a month or so asa statin bb P2Y12 shows plavix nonresponder. start effient load then 10 mg daily. echo - normal ef total CK 500 NSVT - 8 beats this am. asymptomatic. monitor today for any further arrhythmias. probable DC tomorrow Segun Bennett MD May 17, 2017 07:45
[2017-05-17] MEDS ORDERED: CLOPIDOGREL 75 MG TAB PO SCH (09:00)
[2017-05-17] MEDS: ASPIRIN 81 MG CHEW TAB PO SCH ×2 (09:00→09:31)
[2017-05-17] MEDS: METOPROLOL TARTRATE 25 MG TAB PO SCH (09:31)
--- NOTE | 2017-05-17 09:33 | HHI.PR ---
Subjective Remarks doing well . no cp eager for d/c Objective Vitals nad no labored breathing ambulating Vital Signs Date Time Temp Pulse Resp B/P (MAP) Pulse Ox O2 Delivery O2 Flow Rate FiO2 05/17/17 09:00 80 05/17/17 08:00 81 05/17/17 07:30 97.6 73 18 138/80 (99) 96 05/17/17 07:00 73 05/17/17 03:33 98.1 79 18 136/83 (100) 96 05/17/17 00:32 98.1 83 18 140/84 (102) 96 05/16/17 23:00 80 05/16/17 21:02 98.0 83 18 156/88 (110) 95 05/16/17 19:00 92 05/16/17 18:00 100 05/16/17 17:00 80 05/16/17 16:00 80 05/16/17 15:00 80 05/16/17 15:00 98.1 81 18 136/89 (105) 92 05/16/17 14:00 88 05/16/17 13:00 86 05/16/17 12:00 84 05/16/17 11:01 82 05/16/17 11:00 98.9 86 20 117/76 (90) 93 05/16/17 10:00 82 Result Diagram: 05/17/17 0520 05/17/17 0520 A/P Problem List: (1) STEMI (ST elevation myocardial infarction) ICD Codes: I21.3 - ST elevation (STEMI) myocardial infarction of unspecified site Status: Acute Plan: Pt presented with cp, bradycardia and acute inferior stemi [facility] 05/16. acutely occluded rca, 2 diagonal branches and lad with nonobstructive dz. temporary pm during the procedure. 2 isabel to rca. LVF nml on echo. mild hyperlipidemia. hdl 31 f/u [id number] discussed p2y12 test and converting plavix to effient asa. bb. statin ambulate today pt had short run of VT this AM...will observe until this afternoon and make a decision on d/c later today with cardiology. might need outpt stress test to eval nonobstructive dz per cardiology. (2) Hyperlipidemia ICD Codes: E78.5 - Hyperlipidemia, unspecified Status: Chronic Problem Qualifiers (1) STEMI (ST elevation myocardial infarction): Qualified Codes: I21.19 - ST elevation (STEMI) myocardial infarction involving other coronary artery of inferior wall Abel Cheema MD May 17, 2017 09:33
[2017-05-17] MEDS ORDERED: ASPI81CH25 PO (09:37)
[2017-05-17] MEDS ORDERED: NITR1SUB3 SL (09:37)
[2017-05-17] MEDS ORDERED: ATOR40TA16 PO (09:37)
[2017-05-17] MEDS ORDERED: PRAS10TA PO (09:37)
[2017-05-17] MEDS ORDERED: METO25TA3 PO (09:37)
--- NOTE | 2017-05-17 09:37 | HHI.DCPOC ---
Discharge Care Plan Diagnosis: (1) STEMI (ST elevation myocardial infarction) (2) Hyperlipidemia Goals to Promote Your Health * To prevent worsening of your condition and complications * To maintain your health at the optimal level Directions to Meet Your Goals Take your medications as prescribed Follow your dietary instruction Follow activity as directed Keep your appointments as scheduled Take your immunizations and boosters as scheduled If your symptoms worsen call your PCP, if no PCP go to Urgent Care Center or Emergency Room Smoking is Dangerous to Your Health. Avoid second hand smoke Call the 24-hour hour crisis hotline for domestic abuse at Abel Cheema MD May 17, 2017 09:37
[2017-05-17] MEDS ORDERED: ATORVASTATIN 40 MG TAB PO ONE (16:45)
[2017-05-17] MEDS ORDERED: METOPROLOL TARTRATE 25 MG TAB PO ONE (16:45)
[2017-05-18] MEDS ORDERED: PRASUGREL 10 MG TAB PO SCH (09:00)
== END 2017-05-17 17:28 | disposition home or self-care (01) | DRG 247 ==
LOC: NEPC 07:33 → NEDA 08:57 → HCIN 09:18
PROVIDERS: ADMIT Hospitalist; ATTEND Hospitalist
PROC: 027035Z Dilation of Coronary Artery, One Artery with Two Drug-eluting Intraluminal Devices, Percutaneous Approach (ICD-10-PCS; principal; 2017-05-16)
PROC: 02C03ZZ Extirpation of Matter from Coronary Artery, One Artery, Percutaneous Approach (ICD-10-PCS; 2017-05-16)
PROC: 4A023N7 Measurement of Cardiac Sampling and Pressure, Left Heart, Percutaneous Approach (ICD-10-PCS; 2017-05-16)
PROC: B2111ZZ Fluoroscopy of Multiple Coronary Arteries using Low Osmolar Contrast (ICD-10-PCS; 2017-05-16)
DX: I21.19 ST elevation (STEMI) myocardial infarction involving other coronary artery of inferior wall (principal); I47.2 Ventricular tachycardia; I25.10 Atherosclerotic heart disease of native coronary artery without angina pectoris; E78.5 Hyperlipidemia, unspecified
CPT/HCPCS: 71010; 80048; 80061; 82310; 82435; 82550; 82552; 82565; 82947; 83036; 83735; 83880; 84132; 84295; 84484; 84520; 85025; 85576; 85610; 85730; 92941; 93005; 93306; 93454; 96374; 96375; C1725; C1757; C1769; C1874; C1887; C1893; J0583; J1644; J2060; J2250; J2270; J3010; J7030; Q9967